=== PATIENT | female | born 1945 | race Caucasian/White ===

== ENCOUNTER 2019-03-23 09:09 | Day surgery (SDC) | payer MEDICARE, BC ==
[2019-03-23] MEDS ORDERED: GLYCOPYRROLATE 0.4 MG INJ (11:06)
[2019-03-23] MEDS ORDERED: PROPOFOL 40 ML (11:07)
== END 2019-03-23 12:34 | disposition home or self-care (01) ==
LOC: GIL 09:09
DX: R19.4 Change in bowel habit (principal); K57.30 Diverticulosis of large intestine without perforation or abscess without bleeding; K64.8 Other hemorrhoids; K21.9 Gastro-esophageal reflux disease without esophagitis; K29.50 Unspecified chronic gastritis without bleeding; E11.9 Type 2 diabetes mellitus without complications; E78.5 Hyperlipidemia, unspecified
CPT/HCPCS: 43239; 82962; 88305; 88312